=== PATIENT | female | born 1995 | race Caucasian/White ===

== ENCOUNTER 2019-12-16 20:39 | Emergency (ER) | payer OTHER ==
[~2019-12-16] VITALS: Ht 167.6 cm; Wt 84.1 kg
[2019-12-16 20:50] VITALS: BP 108/72; TEMP 98
[2019-12-16 22:23] VITALS: PULSE 63
== END 2019-12-16 22:22 | disposition home or self-care (01) ==
LOC: COL.ER 20:39
DX: S63.601A Unspecified sprain of right thumb, initial encounter (principal); X50.9XXA Other and unspecified overexertion or strenuous movements or postures, initial encounter; Y92.129 Unspecified place in nursing home as the place of occurrence of the external cause; Y99.0 Civilian activity done for income or pay

== ENCOUNTER 2020-03-06 22:47 | Emergency (ER) | payer OTHER ==
[~2020-03-06] VITALS: Ht 167.6 cm; Wt 86.4 kg
[2020-03-06 22:49] VITALS: TEMP 98.9
[2020-03-07 00:11] VITALS: BP 119/83; PULSE 67
== END 2020-03-07 00:42 | disposition home or self-care (01) ==
LOC: COL.ER 22:47
DX: S93.402A Sprain of unspecified ligament of left ankle, initial encounter (principal); X50.1XXA Overexertion from prolonged static or awkward postures, initial encounter

== ENCOUNTER 2020-04-05 10:03 | Day surgery (SDC) | payer OTHER ==
[~2020-04-05] VITALS: Ht 167.6 cm; Wt 89.8 kg
[2020-04-05] MEDS ORDERED: IBU800 M1 PO (10:24)
[2020-04-05] MEDS ORDERED: TYLENOL 325MG325 MG PO (10:25)
[2020-04-05 10:28] VITALS: BP 109/75; PULSE 82; TEMP 97.7
[2020-04-05 11:35] VITALS: BP 99/71; PULSE 57; TEMP 97.3
--- NOTE | 2020-04-05 11:35 | NUR ---
Patient arrives to [facility] via cart, accompanied by endo RN. She is alert and oriented. SHe ambulates to the chair in her room with standby assist. She denies any pain or nausea. Dr. Francisco comes to the bedside and talks with the patient. She is offered and receives a muffin and water. Will continue to monitor.
[2020-04-05 11:50] VITALS: BP 104/74; PULSE 72
--- NOTE | 2020-04-05 11:50 | NUR ---
Patient is resting comfortably in room. Tolerating PO well.
[2020-04-05 12:05] VITALS: BP 106/71; PULSE 74
--- NOTE | 2020-04-05 12:19 | NUR ---
Patient has met discharge criteria. Discharge instructions are discussed. She denies any questions and verbalizes understanding. PIV is removed with catheter intact and hemostasis achieved. She changes to her clothing independently. She is escorted to the exit via wheelchair by MICHAEL Ravi. Discharged to home with ride () at 1219.
== END 2020-04-05 12:19 | disposition home or self-care (01) ==
LOC: SDCO 10:03
DX: K58.1 Irritable bowel syndrome with constipation (principal); K62.89 Other specified diseases of anus and rectum; U07.1 COVID-19; E66.9 Obesity, unspecified; Z68.31 Body mass index [BMI] 31.0-31.9, adult; M19.90 Unspecified osteoarthritis, unspecified site
CPT/HCPCS: J2704; J3010; J7030

== ENCOUNTER 2020-05-06 14:56 | Outpatient (RCR) | payer OTHER ==
[~2020-05-06 14:56] MED LIST: IBU800 M1 PO; TYLENOL 325MG325 MG PO
== END 2020-05-06 15:00 | disposition home or self-care (01) ==
LOC: WSPT → WSOH 14:56
DX: S96.812A Strain of other specified muscles and tendons at ankle and foot level, left foot, initial encounter (principal); F41.9 Anxiety disorder, unspecified; M45.9 Ankylosing spondylitis of unspecified sites in spine; K58.9 Irritable bowel syndrome, unspecified; M19.90 Unspecified osteoarthritis, unspecified site; T78.40XA Allergy, unspecified, initial encounter; Y99.0 Civilian activity done for income or pay

== ENCOUNTER 2020-09-18 12:39 | Outpatient (RCR) | payer OTHER | END 2020-09-19 14:37 | disposition home or self-care (01) | LOC: WSOH 12:39 | DX: S46.812A Strain of other muscles, fascia and tendons at shoulder and upper arm level, left arm, initial encounter (principal); F41.9 Anxiety disorder, unspecified; K58.9 Irritable bowel syndrome, unspecified; M54.30 Sciatica, unspecified side; M45.9 Ankylosing spondylitis of unspecified sites in spine; Z98.890 Other specified postprocedural states; Y99.0 Civilian activity done for income or pay ==